=== PATIENT | female | born 1995 | race Caucasian/White ===

== ENCOUNTER 2023-07-22 07:59 | Outpatient (CLI) | payer BC, SELFPAY ==
--- NOTE | 2023-07-22 08:15 | CRLHL7_ITS ---
For Patients: As a result of the Century Cures Act, medical imaging exams and procedure reports are released immediately into your electronic medical record. You may view this report before your referring provider. If you have questions, please contact your health care provider. INDICATION: First trimester scan, establish dates. COMPARISON: None. TECHNIQUE: Real-time ortiz-scale imaging of the pelvis was performed. FINDINGS: Sonographic imaging demonstrates a single living intrauterine gestation. The embryo demonstrates a regular cardiac rate measuring 171 beats per minute. The embryo`s crown-rump length measurement of 2.1 cm corresponds to a gestational age of 8 weeks 5 days with a sonographic due date of 02/26/2024. There is a normal-appearing yolk sac. There are no gross abnormalities noted within the embryo at this early state of development. The gestational sac has a normal appearance. There is a left-sided perigestational hemorrhage measuring 2.3 x 1.9 x 0.8 cm. The amount of fluid within the sac appears appropriate for gestational age. The cervix is closed. The myometrium appears normal. The ovaries are of normal size. Corpus luteal cyst left ovary. There are no suspicious fluid collections noted in the cul-de-sac. IMPRESSION: Single living intrauterine with sonographic gestational age 8 weeks 5 days and sonographic due date of 02/26/2024. Left-sided subchorionic hemorrhage measuring 2.3 x 1.9 x 0.8 cm. Dictated by Herman Covarrubias MD @ 07/22/2023 9:43:48 AM (Electronically Signed)
== END 2023-07-22 08:00 | disposition home or self-care (01) ==
LOC: US 08:02
PROVIDERS: PCP Family Medicine; Visit Provider Registered Nurse
DX: Z34.91 Encounter for supervision of normal pregnancy, unspecified, first trimester (principal); O20.9 Hemorrhage in early pregnancy, unspecified; Z3A.08 8 weeks gestation of pregnancy
CPT/HCPCS: 76801; 86592; 86703; 86762; 86787; 86803; 86850; 86900; 86901; 87086; 87340; 87491; 87591

== ENCOUNTER 2023-07-22 09:13 | Outpatient (CLI) | payer BC, SELFPAY ==
[2023-07-22 14:07] LABS: Chlamydia DNA Amplified* NOT DETECTED (No Detected); GC DNA Amplified* NOT DETECTED (No Detected)
== END 2023-07-22 09:14 | disposition home or self-care (01) ==
PROVIDERS: PCP Family Medicine; Visit Provider Registered Nurse
DX: Z34.91 Encounter for supervision of normal pregnancy, unspecified, first trimester (principal); O20.9 Hemorrhage in early pregnancy, unspecified; Z3A.08 8 weeks gestation of pregnancy
CPT/HCPCS: 86592; 86703; 86762; 86787; 86803; 86850; 86900; 86901; 87086; 87340; 87491; 87591

== ENCOUNTER 2023-10-14 12:48 | Outpatient (CLI) | payer BC, SELFPAY ==
--- NOTE | 2023-10-14 13:00 | CRLHL7_ITS ---
For Patients: As a result of the Century Cures Act, medical imaging exams and procedure reports are released immediately into your electronic medical record. You may view this report before your referring provider. If you have questions, please contact your health care provider. INDICATION: Evaluate anatomy. COMPARISON: 07/22/2023 TECHNIQUE: Real time ortiz scale imaging of the fetus was performed as well as color Doppler analysis of the umbilical vessels. FINDINGS: Sonographic imaging demonstrates a single living intrauterine gestation. Fetus demonstrates a regular cardiac rate of 141 beats per minute. Fetus has a renu breech position. The placenta lies anteriorly without evidence of placenta previa. The placental edge is located 8.7 cm from the internal cervical os. Amniotic fluid volume appears normal. Single deepest vertical pocket: 3.3 cm. The cervix is closed and measures 3.5 cm in length. The composite ultrasound gestational age is calculated at 20 weeks 3 days with an estimated sonographic due date of 02/28/2024. The estimated weight is 384 grams which lies at the 47th %. The following biometric measurements were obtained: Biparietal diameter: 4.7 cm/20 weeks 2 days 28th% Head circumference: 18.0 cm/20 weeks 3 days 22nd% Abdominal circumference: 15.9 cm/21 weeks 0 days 49th% Femur length: 3.5 cm/20 weeks 6 days 43rd% The HC/AC ratio measures: 1.13 range (1.07-1.25) On anatomic survey, there is a normal appearance of the cerebral ventricles, cavum septi pellucidi, cisterna magna and cerebellum. The nose, lips, and facial profile appear normal. The cervical, thoracic and lumbar spine are well visualized and appear normal. There is a normal four-chamber heart view and the left and right ventricular outflow tracts appear normal. The diaphragm and stomach appear normal. The kidneys and bladder also appear normal. There is a normal three-vessel cord and cord insertion site. The four extremities appear normal. IMPRESSION: Normal OB ultrasound exam with concordance of clinical and sonographic dating. No intrinsic abnormalities noted on anatomic survey. Dictated by Herman Covarrubias MD @ 10/14/2023 2:48:45 PM (Electronically Signed)
== END 2023-10-14 12:49 | disposition home or self-care (01) ==
LOC: US 12:49
PROVIDERS: PCP Family Medicine; Visit Provider Advanced Practice Midwife
DX: Z34.92 Encounter for supervision of normal pregnancy, unspecified, second trimester (principal); Z3A.20 20 weeks gestation of pregnancy
CPT/HCPCS: 76805

== ENCOUNTER 2023-12-11 09:30 | Outpatient (CLI) | payer BC, SELFPAY | END 2023-12-11 09:31 | disposition home or self-care (01) | LOC: NFLDREF 12-14 05:57 | PROVIDERS: PCP Family Medicine; Referring Provider Family Medicine; Visit Provider Advanced Practice Midwife | DX: Z34.93 Encounter for supervision of normal pregnancy, unspecified, third trimester (principal); Z3A.29 29 weeks gestation of pregnancy | CPT/HCPCS: 86592 ==

== ENCOUNTER 2024-01-29 10:20 | Outpatient (CLI) | payer BC, SELFPAY | END 2024-01-29 10:21 | disposition home or self-care (01) | LOC: NFLDREF 02-01 05:58 | PROVIDERS: PCP Family Medicine; Referring Provider Family Medicine; Visit Provider Advanced Practice Midwife | DX: Z34.03 Encounter for supervision of normal first pregnancy, third trimester (principal); Z3A.36 36 weeks gestation of pregnancy | CPT/HCPCS: 87081; 87653 ==

== ENCOUNTER 2024-02-19 11:16 | Outpatient (CLI) | payer BC, SELFPAY ==
[2024-02-19] VITALS (13 sets, daily range): BP systolic 123–144; BP diastolic 66–93; PULSE 73–98; RESP 16; TEMP 36.8; O2SAT 98
[2024-02-19 12:02] LABS: Hematocrit 37.7 % (33.0-51.0); Hemoglobin* 12.4 gm/dL (12.0-16.0); Mean Corpuscular HGB Conc 33 gm/dL (32-36); Mean Corpuscular Hemoglobin 30 pg (26-34); Mean Corpuscular Volume 90 fL (80-100); Platelet Count* 237 K/uL (140-440); Red Blood Count 4.18 m/uL (4.00-5.20); White Blood Count* 10.26 K/uL (4.50-11.00)
[2024-02-19 12:16] LABS: Alanine Aminotransferase* 50 U/L (4-35); Aspartate Amino Transferase* 48 U/L (12-35); Blood Urea Nitrogen* 11 mg/dL (5-24); Creatinine* 0.6 mg/dL (0.5-1.5); Estimated Glomerular Filt Rate 125 ml/min
[2024-02-19 12:18] LABS: Slide Review Reflex No
[2024-02-19 13:52] LABS: Total Protein Urine 11 mg/dL
[2024-02-19 13:53] LABS: Creatinine Urine 115.8 mg/dL
--- NOTE | 2024-02-19 15:20 | P.OBLDTN_ITS ---
OB - Triage/Final Diagnosis Visit Information Narrative: Dina is a 28 year old 1 para 0 at 39.1 weeks gestation by LMP, who presents from clinic with elevated blood pressure. She is here for extended blood pressure monitoring. She denies any headache, epigatric pain, blurred vision, or n/v. She denies any other concerns. She endorses good movement. Evaluation Laboratory results: Laboratory Tests 02/19/24 02/19/24 Range/Units 13:18 11:56 WBC 10.26 (4.50-11.00) K/uL RBC 4.18 (4.00-5.20) m/uL Hgb 12.4 (12.0-16.0) gm/dL Hct 37.7 (33.0-51.0) % MCV 90 (80-100) fL MCH 30 (26-34) pg MCHC 33 (32-36) gm/dL Plt Count 237 (140-440) K/uL BUN 11 (5-24) mg/dL Creatinine 0.6 (0.5-1.5) mg/dL Estimated GFR 125 ml/min AST 48 H (12-35) U/L ALT 50 H (4-35) U/L Urine Creatinine 115.8 mg/dL Protein/Creatinin Ratio 0.00 (0-0.19) Urine Total Protein 11 mg/dL Vital signs: Vital Signs - 24 hr 02/19/24 11:33 02/19/24 11:36 02/19/24 11:36 Temperature 98.2 F Pulse Rate 82 Respiratory Rate 16 Blood Pressure 139/91 H Pulse Oximetry 98 02/19/24 11:52 02/19/24 12:07 02/19/24 12:21 Temperature Pulse Rate 73 76 80 Respiratory Rate Blood Pressure 144/93 H 140/87 H 136/86 Pulse Oximetry 02/19/24 12:36 02/19/24 12:52 02/19/24 13:22 Temperature Pulse Rate 86 73 78 Respiratory Rate Blood Pressure 137/91 H 135/90 H 129/77 Pulse Oximetry 02/19/24 13:38 02/19/24 13:51 02/19/24 14:06 Temperature Pulse Rate 86 97 86 Respiratory Rate Blood Pressure 128/77 127/74 130/69 Pulse Oximetry 02/19/24 14:21 02/19/24 14:36 Temperature Pulse Rate 77 90 Respiratory Rate Blood Pressure 123/66 127/73 Pulse Oximetry Fetus (Single) Heart Rate Baseline: 125 Correction Variability: Moderate (6-25) Monitor Accelerations: Absent Monitor Decelerations: None Final Diagnosis (1) Elevated blood pressure reading without diagnosis of hypertension: Status: Acute Problem details: After 4 hours of blood pressure monitoring, BP normalized to 120/70's. Reviewed findings with patient. At this time, does not meet criteria for diagnosis of GH TN Labs WNL with exception of mildly elevated AST and ALT labs. Findings discussed with patient and reviewed concern for potential organ damage with elevated liver enzymes and elevated blood pressures. However, without diagnosis of HTN this is just elevated liver enzymes. Discussed concern for rising ALT/AST, if severe or double normal we would consider this a severe feature of HTN and would recommend magnesium sulfate IV management. Risk of HTN was reviewed with patient earlier in clinic but reviewed risk for mother and baby with HTN in . Discussed IOL today due to elevated labs as recommended by MD, she declines. MD, Dr. Powell, was notified of this. Recommend BP check tomorrow in Center rather than waiting for clinic next week due to blood pressure trends and elevated liver enzymes. Patient agrees with plan. Discussed high likelihood of staying for induction tomorrow for GHTN. She reports understanding. Reviewed warning s/sx of worsening blood pressure disorders of . I reviewed that the course of this is unpredictable meaning it could progress rapidly and they return with symptoms tonight, or progression is slow and they return tomorrow as discussed for BP check. All questions answered. Plan BP check in Labor and Delivery tomorrow, IOL if elevated BP at this time. Will plan to repeat labs if BP elevated. (2) 39 weeks gestation of : Status: Acute (3) Elevated liver enzymes: Status: Acute
--- NOTE | 2024-02-26 17:30 | PC.OBNST ---
NST Note NST Note Start: 02/19/24 11:26 Freq: ONCE Status: Discharge Protocol: Document 02/19/24 15:15 ABP (Rec: 02/26/24 17:20 MMB [id number]) NST Note 1 Para (# of births) 0 EDC 02/25/24 Gestational Age In Weeks & Days 40 Weeks & 1 Days Patient Presented with Complaint(s) of Other Other Complaints Elevated BP in clinic Reactive Yes Appropriate for Gestational Age Yes RN Yony Jones RN Date 02/19/24 Reactive Yes Appropriate for Gestational Age Yes RN Jennifer Quiroga CNM Date 02/19/24 OB NST charge Yes Complete NST Note via Write Note Yes The provider's electronic signature indicates the NST is reactive/appropriate for gestational age. *Note to provider: If an addendum is required, open the patient's chart and click on the note under the Nurse/Allied Health tab.
== END 2024-02-19 15:15 | disposition home or self-care (01) ==
LOC: OB OUT 11:16 → OB 11:17
PROVIDERS: PCP Family Medicine; Visit Provider Advanced Practice Midwife
DX: O26.893 Other specified pregnancy related conditions, third trimester (principal); R03.0 Elevated blood-pressure reading, without diagnosis of hypertension; Z3A.39 39 weeks gestation of pregnancy; R74.8 Abnormal levels of other serum enzymes
CPT/HCPCS: 36415; 59025; 82565; 82570; 84156; 84450; 84460; 84520; 85027; G0463

== ENCOUNTER 2024-02-21 22:06 | Inpatient (IN) | payer BC, SELFPAY ==
[2024-02-21] VITALS (7 sets, daily range): BP systolic 114–141; BP diastolic 68–89; PULSE 57–71; RESP 16; TEMP 36.6; BMI 35.3
[2024-02-21 21:29] LABS: Hematocrit 37.5 % (33.0-51.0); Hemoglobin* 12.4 gm/dL (12.0-16.0); Mean Corpuscular HGB Conc 33 gm/dL (32-36); Mean Corpuscular Hemoglobin 30 pg (26-34); Mean Corpuscular Volume 91 fL (80-100); Platelet Count* 228 K/uL (140-440); Red Blood Count 4.13 m/uL (4.00-5.20); White Blood Count* 11.15 K/uL (4.50-11.00)
[2024-02-21 21:43] LABS: Slide Review Reflex No
[2024-02-21 21:47] LABS: Alanine Aminotransferase* 45 U/L (4-35); Aspartate Amino Transferase* 42 U/L (12-35); Blood Urea Nitrogen* 10 mg/dL (5-24); Creatinine* 0.6 mg/dL (0.5-1.5); Estimated Glomerular Filt Rate 125 ml/min
[2024-02-21 21:48] LABS: Total Protein Urine 18 mg/dL
[2024-02-21 21:49] LABS: Creatinine Urine 55.4 mg/dL
[2024-02-21] MEDS: ACETAMINOPHEN 500 MG TABLET 1000 MG PO (22:06)
--- NOTE | 2024-02-21 22:12 | P.LDBA_ITS ---
Subjective History of Present Illness Time Seen by Provider: 23:15 Date Seen: 02/21/24 Narrative: Dina is being admitted to Labor and Delivery for induction of labor for preeclampsia with severe features. She is a 28 year old at 39.3 weeks gestation. Her full history and physical was dictated by Mable Vidales CNM on 02/05/24. Please see this for details. She was seen in triage on Thursday for elevated blood pressures but did not meet the criteria of GHTN or Preeclampsia at that time. After 4 hours of monitoring her blood pressures normalized and she was sent home, she returned Thursday for a follow up blood pressure check and had normal blood pressure with a reactive NST on that day. Dina complains of a headache that started today around 1500, she also has felt hot and then clammy through out the day. On arrival her blood pressure is elevated, although not in the severe range, she denies any abdominal pain or visual changes. She was given Tylenol for her headache around 2200 and then vomited 25 minutes later, she continues to have a headache. Specific Issues/Plans G 1 Fiancee: Nba H&P done by Mable Vidales CNM on 02/05/24 1. Due to nulliparity and BMI 30.4, recommend daily baby aspirin starting at 12 weeks to reduce risk of preeclampsia 2. Depression. Well managed on Bupropion. Not seeing a counselor. COVID: Not vaccinated. Recommended TDAP: 01/01/2024 RSV: 01/01/2024 OB - Problem Based A/P Additional Plan (1) Severe preeclampsia: Problem details: By headache unresponsive to Tylenol. Status: Acute (2) Elevated liver enzymes: Status: Acute (3) 39 weeks gestation of : Status: Acute Plan Assessment:?? at 39.3 weeks gestation?? Preeclampsia with severe features GBS negative? Patient is coping well with her diagnosis and plan for induction. Labor type: Induced, not in labor? Category 2 FHR pattern.? complicated by: 1. Due to nulliparity and BMI 30.4, recommend daily baby aspirin starting at 12 weeks to reduce risk of preeclampsia 2. Depression. Well managed on Bupropion. Not seeing a counselor. Plan:?? * Admit to L & D? * IV access: SL * Monitoring per policy: continuous ? * Candidate for analgesia of choice. She would like to labor without an epidural for as long as possible. Is open to having one if she feels she needs it. ?Reviewed her pain management options. * Reviewed risks and benefits of IOL with Cook balloon, Pitocin vs Cytotec/Cervidil. Will plan for Cervidil tonight. Pitocin to follow if needed. * Monitor blood pressures per protocol and treat if in severe range per protocol. * Reviewed plan of care and patient status with Dr. Márquez. Based on her continued headache, will initiate magnesium sulfate 4g bolus, 2g per hour with labs every 6 hours. OB and CNM will comanage patient during labor. Dr. Cb Monte will assume care of the preeclampsia with severe features and magnesium, CNM will manage labor. Patient is aware that we will both be a part of her team. Post-delivery, CNM care will be relinquished to MD until discharge. * Patient encouraged to reposition and ambulate to promote physiologic labor and . * Anticipate ? Delivery/Labor/Induction Plan Plan: induction Induction method: Cervidil OB Exam Physical Exam Vital signs: Temp Pulse Resp BP 97.9 F 59 L 16 138/87 02/21/24 20:56 02/21/24 21:41 02/21/24 20:56 02/21/24 21:41 Narrative: Vitals Reviewed Constitutional:? Alert and oriented x3 HEENT:? Normocephalic, atraumatic Neck:? Supple Lungs:? Clear to auscultation bilaterally Heart:? Regular rate and rhythm, no murmur, rub or gallop Abdomen:? Soft, nontender, and gravid. Vertex by Rex's, confirmed with cervical exam. Extremities:? No edema or erythema Cervix: 1 cm/30%/-1 station/vertex NST: 135 bpm/moderate variability/+accelerations/occasional late and variable decelerations/ irregular contractions Detailed Labor and Delivery Exam Patient Gravid: Yes
[2024-02-21] MEDS: ONDANSETRON ODT 4 MG TAB PO (22:34)
[2024-02-21] MEDS: LACTATED RINGERS 1000 ML 1,000 ML 75 ML IV (23:11)
[2024-02-21] MEDS: MAGNESIUM Infusion 40 GM/1,000 ML IV.SOLN IVPB (23:12)
[2024-02-21] MEDS: MAGNESIUM IV 4 GM/100 ML PIGGYBACK IVPB (23:12)
--- NOTE | 2024-02-21 23:33 | PM.OBCN1 ---
OB - CN: HPI Date of Consult Time Seen by Provider: 23:33 Date Seen: 02/21/24 Patient: [facility] Patient Consult date: 02/21/24 Requesting Physician: Dorothy Vidales CNM Primary Care Provider: Hugo Hart MD Consult Narrative Narrative: The patient is a 28 year old G 1 P 0 at 39 weeks 3 days gestation that was admitted to the Center on 02/21/24 for preeclampsia with severe features by EDUCATION DEPARTMENT CHAIR symptoms. BP was elevated in the office on 02/19/2024, she was sent to L&D for serial BP's which were normal and came into the Center on 02/19 for BP check that was also normal. Today, she developed a headache that was unresponsive to Tylenol so came into the center for evaluation. BP's were noted to be 140s/80s with a urine protein/creatinine ratio of 0.3, AST 42 and ALT 45 (which were 48 and 50, respectively on 02/18). Because of the intractable headache the patient was started on magnesium sulfate for seizure prophylaxis and IOL begun. Planning for the labor and delivery to be managed by the CNM's with preeclampsia management by the FRENCH FOLDER's. History of Present Dating criteria: based on LMP care: good care Ultrasounds: normal 1st trimester US and normal mid trimester US complications: preeclampsia History History 1 Elective abortions Para 0 Spontaneous abortions Hx # Term Pregnancies Ectopic pregnancies Hx # Pregnancies Multiple births Number of Living Children 0 Labs Blood type: B (+) positive GBS status: negative OB Labs: Lab Assessment Start: 02/21/24 22:14 Freq: ONCE Status: Active Protocol: PC.OBGBS Activity Type Activity Date Activity User E-sign Co-sign Detail Recorded Client Recorded Date Recorded By Document 02/21/24 22:23 [facility] [id number] 02/21/24 22:23 [facility] 02/21/24 22:23 Lab Assessment GBS Status negative Is Patient Allergic to Penicillin? 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. Engaged to [place] x2 years. What is your current living situation?: I presently have a place to live Problems where you live: no known problems In the past 12 months, utilities in danger of being shut off: no In past 12 months, lack of transportation kept you from medical appts, meetings, work, or getting things needed for daily living: no In the past 12 mos, have been you worried that your food would run out before you had money to buy more?: never true In the past 12 mos, the food you bought just didn't last and you didn't have money to buy more?: never true Smoking Status: Never smoker How often does anyone, including family, friends and others, physically hurt you: never How often does anyone, including family, friends and others, insult or talk down to you: never How often does anyone, including family, friends and others, threaten you with harm: never How often does anyone, including family, friends and others, scream or curse at you: never Little interest or pleasure in doing things: not at all Feeling down, depressed, or hopeless: not at all Meds Home Medications and Allergies Home Medications Medication Instructions Recorded Confirmed Type bupropion HCl 300 mg 24 hr tablet, 300 mg PO DAILY 07/22/23 02/21/24 History extended release docosahexaenoic acid 200 mg 1 mg PO DAILY 07/22/23 02/21/24 History capsule ( DHA) omeprazole 10 mg capsule,delayed 10 mg PO ONCE 12/11/23 02/21/24 History release Allergies Allergy/AdvReac Type Severity Reaction Status Date / Time amoxicillin Allergy Mild Rash Verified 02/19/24 11:38 cefprozil Allergy Mild Rash Verified 02/19/24 11:38 Penicillins Allergy Mild rash Verified 02/19/24 11:38 OB - H&P: Exam Physical Exam: Vital signs: Temp Pulse Resp BP 97.9 F 65 16 129/72 02/21/24 20:56 02/21/24 23:26 02/21/24 20:56 02/21/24 23:26 Narrative: See Dorothy Vidales's examine note. OB - Results Labs Labs: Short CBC 02/21/24 Range/Units 21:22 WBC 11.15 H (4.50-11.00) K/uL Hgb 12.4 (12.0-16.0) gm/dL Hct 37.5 (33.0-51.0) % Plt Count 228 (140-440) K/uL BMP 02/21/24 21:22 BUN 10 Creatinine 0.6 Liver Function 02/21/24 Range/Units 21:22 AST 42 H (12-35) U/L ALT 45 H (4-35) U/L OB - CN: A/P Assessment and Plan (1) Severe preeclampsia: Problem details: By headache unresponsive to Tylenol. Status: Acute Plan 1. Magnesium sulfate for seizure prophylaxis: 4gm load then 2gm/hr IV, continue until 24hours . 2. IOL per Dorothy Vidales CNM 3. GBS negative. 4. Blood type B+
[2024-02-22] VITALS (88 sets, daily range): BP systolic 89–159; BP diastolic 50–90; PULSE 58–130; RESP 12–20; TEMP 36.3–37.2; O2SAT 92–100
--- NOTE | 2024-02-22 01:46 | PM.OBPNL ---
Subjective Date Seen: 02/22/24 Narrative: ?Dina is coping well she is comfortable in bed at this time. She has been regan regularly on her own since admission and feels they are slightly stronger at this time. Cervidil was not placed because of how often she is regan and it was felt she may be starting labor on her own without intervention. Exam now showed slight cervical change from 1-1.5cm. Discussed with Dina that with her diagnosis of Severe Preeclampsia would recommend we add IV Pitocin for augmentation of what is likely spontaneous early labor. Reviewed R/B/A for induction and at this time will plan to start Pitocin to augment, iDna agrees with this plan. Objective Exam: VSS, afebrile General Appearance:? Calm, cooperative. ?No acute distress. ? Psychiatric Exam: Alert and oriented, appropriate affect Abdomen: Gravid Ctx: ?Q 2-4 min apart. ? ? ?Moderate FHTs: ?Baseline: 120. ? ? Variability: moderate. ?Accels: +. ? ?Decels: ?-. SVE: 1.5/30/-1 Membranes: Intact ? Vital Signs: Last Vital Signs Temp 97.9 F 02/21/24 20:56 Pulse 96 02/22/24 01:27 Resp 16 02/21/24 20:56 BP 121/70 02/22/24 01:27 Assessment Assessment: induction ongoing Plan Plan: Assessment:?? at 39.4wks gestation?? GBS neg Patient is coping well with challenges of labor.?? Labor type: Augmented, Early labor? Category 1 FHR pattern.? complicated by: 1. Due to nulliparity and BMI 30.4, recommend daily baby aspirin starting at 12 weeks to reduce risk of preeclampsia 2. Depression. Well managed on Bupropion. Not seeing a counselor. Labor complicated by: Severe Preeclampsia on Magnesium IV? Plan:?? Augment labor with IV Pitocin per protocol. Encourage sleep overnight, may have Vistaril for sleep. Continue with routine intrapartum cares as ordered.?? Patient encouraged to move and change positions to promote physiologic labor and .?? Nonpharmacologic comfort measures per patient preference. Candidate for analgesia of choice if desired. IV Magnesium continues for seizure prevention with severe preeclampsia. OB is managing severe preeclampsia treatment, CNM to manage her labor and transfer of all care to OB provider after delivery. Anticipate progress to NVD. ?
[2024-02-22] MEDS: hydrOXYzine pamoate 25 MG CAPSULE 100 MG PO (02:02)
[2024-02-22] MEDS: OXYTOCIN 30 unit/500 ML in NS 30 UNIT/500 ML BAG IVPB (02:06)
[2024-02-22] MEDS: MORPHINE 10 MG/ML inj IM (05:28)
[2024-02-22 05:29] LABS: Hemoglobin* 12.7 gm/dL (12.0-16.0); Mean Corpuscular HGB Conc 33 gm/dL (32-36); Mean Corpuscular Hemoglobin 30 pg (26-34); Mean Corpuscular Volume 91 fL (80-100); Platelet Count* 247 K/uL (140-440); Red Blood Count 4.29 m/uL (4.00-5.20); White Blood Count* 12.15 K/uL (4.50-11.00)
[2024-02-22 05:37] LABS: Slide Review Reflex No
[2024-02-22 05:42] LABS: Alanine Aminotransferase* 48 U/L (4-35); Aspartate Amino Transferase* 48 U/L (12-35); Blood Urea Nitrogen* 9 mg/dL (5-24); Creatinine* 0.6 mg/dL (0.5-1.5); Est. Creatinine Clearance* 120.54; Estimated Glomerular Filt Rate 125 ml/min
[2024-02-22 05:51] LABS: Magnesium* 5.2 mg/dL (1.5-2.6)
--- NOTE | 2024-02-22 08:34 | P.OBPN_ITS ---
Subjective Date Seen: 02/22/24 Narrative: Dina is a 28 yo at 39 4/7 weeks gestation that presented for elevated blood pressure with a headache. She was admitted and IOL was started for severe pre-e and magnesium sulfate was initiated. She is coping well with labor pain/contractions. She is currently being supported by her Nba tidwell. Understands the current plan of care. Questions answered to her satisfaction. She currently denies a headache, epigastric pain, blurred vision, or n/v. She would like to continue with movement/repositioning, IV pain medication, or nitrous for comfort and pain management.?? Objective Exam: Objective: Constitutional: Alert and oriented x3, mild distress, coping well Vital signs stable, see nurse documentation Abdomen: gravid, contractions palpate mild/moderate with contractions and soft between Cervix: 3 cm/70%/-1 station/vertex NST: 120 bpm/moderate variability/15x15 accelerations/no decelerations/contractions every 2-4 minutes Vital Signs: Last Vital Signs Temp 98.3 F 02/22/24 05:15 Pulse 74 02/22/24 08:15 Resp 16 02/21/24 20:56 BP 118/75 02/22/24 08:15 Pulse Ox 97 02/22/24 05:15 Plan Plan: Assessment:?? at 39.4wks gestation?? GBS neg Patient is coping well with challenges of labor.?? Labor type: Augmented, Early labor? Category 1 FHR pattern.? complicated by: 1. Due to nulliparity and BMI 30.4, recommend daily baby aspirin starting at 12 weeks to reduce risk of preeclampsia 2. Depression. Well managed on Bupropion. Not seeing a counselor. Labor complicated by: Severe Preeclampsia on Magnesium IV? Plan:?? Augment labor with IV Pitocin per protocol. Recommend continued increase of IV p itocin. Continue with routine intrapartum cares as ordered.?? Patient encouraged to move and change positions to promote physiologic labor and .?? Nonpharmacologic comfort measures per patient preference. Candidate for analgesia of choice if desired. IV Magnesium continues for seizure prevention with severe preeclampsia. OB is managing severe preeclampsia treatment, CNM to manage her labor and transfer of all care to OB provider after delivery. Anticipate progress to NVD.
--- NOTE | 2024-02-22 12:00 | P.OBPN_ITS ---
Subjective Date Seen: 02/22/24 Narrative: Dori is a 28 yo at 39 4/7 weeks gestation coping well with labor pa in/contractions. She is currently being supported by her Nba tidwell. Understands the current plan of care. Questions answered to her satisfaction. Reports concerns regarding: none. Objective Exam: Objective: Constitutional: Alert and oriented x3, moderate/severe distress, coping well Vital signs stable, see nurse documentation Abdomen: gravid, contractions palpate moderate with contractions and soft between Cervix: 8 cm/90%/0 station/vertex, AROM with pink tinged fluid NST: 105 bpm/moderate variability/15x15 accelerations/no decelerations/contractions every 2-3 minutes Vital Signs: Last Vital Signs Temp 97.9 F 02/22/24 09:14 Pulse 96 02/22/24 16:03 Resp 16 02/22/24 09:14 BP 119/64 02/22/24 16:03 Pulse Ox 100 02/22/24 15:14 Comments: Patient had a large gush of bleeding with the contraction following AROM. About 100 mL estimated. Continue to monitor bleeding. Plan Plan: Assessment:?? at 39.4wks gestation?? GBS neg Patient is coping well with challenges of labor.?? Labor type: Augmented, Active labor? Category 1 FHR pattern.? complicated by: 1. Due to nulliparity and BMI 30.4, recommend daily baby aspirin starting at 12 weeks to reduce risk of preeclampsia 2. Depression. Well managed on Bupropion. Not seeing a counselor. Labor complicated by: Severe Preeclampsia on Magnesium IV? Suspected Placenta abruption Plan:?? Augment labor with IV Pitocin per protocol. Discussed restarting pitocin due to gush of bleeding following AROM and concern for placenta abruption. Continue with routine intrapartum cares as ordered.?? Patient encouraged to move and change positions to promote physiologic labor and .?? Nonpharmacologic comfort measures per patient preference. Candidate for analgesia of choice if desired. IV Magnesium continues for seizure prevention with severe preeclampsia. OB is managing severe preeclampsia treatment, CNM to manage her labor and transfer of all care to OB provider after delivery. Suspect placental abruption based on gush of blood after AROM and continued trickling of bleeding. Will continue to monitor bleeding. MD notified, Peds notified of suspected placenta abruption. Continue with current labor plan unless status changes. Anticipate progress to NVD.
[2024-02-22] MEDS: LACTATED RINGERS 1000 ML 1,000 ML 75 ML IV (12:22)
[2024-02-22] MEDS: lidocaine HCL 2 % JELLY (TOP) STERILE 6 ML TOPICAL (13:43)
[2024-02-22] MEDS: TRANEXAMIC ACID 100 MG/ML INJ 1000 MG IV (13:43)
[2024-02-22] MEDS: LIDOCAINE 1 % PF 30 ML INJECTION (13:56)
[2024-02-22] MEDS: ACETAMINOPHEN 500 MG TABLET 1000 MG PO ×2 (14:45→21:11)
[2024-02-22 15:10] LABS: Hematocrit 36.7 % (33.0-51.0); Hemoglobin* 12.2 gm/dL (12.0-16.0); Mean Corpuscular HGB Conc 33 gm/dL (32-36); Mean Corpuscular Hemoglobin 30 pg (26-34); Mean Corpuscular Volume 90 fL (80-100); Platelet Count* 237 K/uL (140-440); Red Blood Count 4.06 m/uL (4.00-5.20); White Blood Count* 22.69 K/uL (4.50-11.00)
[2024-02-22 15:22] LABS: Slide Review Reflex No
[2024-02-22 15:25] LABS: Alanine Aminotransferase* 46 U/L (4-35); Aspartate Amino Transferase* 55 U/L (12-35); Blood Urea Nitrogen* 9 mg/dL (5-24); Creatinine* 0.6 mg/dL (0.5-1.5); Est. Creatinine Clearance* 120.54; Estimated Glomerular Filt Rate 125 ml/min
[2024-02-22] MEDS: MORPHINE 4 MG/ML INJ IVP (15:34)
--- NOTE | 2024-02-22 16:05 | W.PM.OBVAGDE ---
OB Procedure Vag Delivery Mother Details Mother Details: The patient is a 28 year-old, 1, now Para 1 admitted on 02/21/24 at 39.3 weeks gestation. : 1 Para: 1 Weeks Gestation: 39.4 Admission Date: 02/21/24 Additional Details Amniotic Membrane Status: AROM Amniotic Membrane Rupture Date: 02/22/24 Amniotic Membrane Rupture Time: 11:13 Amniotic Membrane Fluid Description: Fri[place] and Bloody Analgesia/Anesthesia Type: Local Waterbirth: No Pitcoin: Yes Intrapartal Events: Labor Augmentation Delivery augmentation: rupture of membranes and pitocin Heart: heart tones during second stage were reassuring with return to baseline between contractions and moderate variability. Delivery Details Delivery Date: 02/22/24 Delivery Time: 13:23 Route of delivery: Infant Gender: Female Infant Viability: Alive; Heart Rate Present Position at Delivery: OA Delivery Details: Patient was admitted for early labor and elevated blood pressure with headache where she was diagnosed with Pre-Eclampsia with severe features. Magnesium was initiated. Her labor was augmented and she progressed normally. AROM noted at 1113 with clear pink tinged fluid initially. With the next contraction she had a large gush of bright red blood, approximately 100 mL. She continued to have bright red trickling during contractions with total EBL during labor of 200 mL. Patient was complete at 1254 and pushing at 1255. of a viable female at 1323 in left tilt on a mat on the floor. Vertex delivered OA with compound right hand at chin. Arm and shoulder were delivered easily. No nuchal cord or shoulder. Body delivered easily and without incident. passed to mothers abdomen with a vigorous cry. Cord was clamped and cut at > 5 minutes. APGARS were 7 at one minute and 9 at five minutes respectively. [facility] in attendance of delivery. Mouth was bulb suctioned. Intact placenta with a 3 vessel cord delivered spontaneously at 1340. Fundus firm. Shallow 2nd degree with right labial extension up to the apex of her labia majora was identified and repaired in typical fashion. QBL 400 cc. Total of 600 for labor and . The laceration continued to trickle, even after repair. Recommended ice application and Dr. Aldridge notified. Mother and baby stable; mother plans to breastfeed. Infant weight pending. At about an hour after repair was completed, she attempted to get up and void and had a large gush of bleeding. Dr. Aldridge was nearby and pulled to bedside. She recommended exam under anesthesia due further assess bleeding. See her note for further details. 1 Minute Interval Total Score: 7 5 Minute Interval Total Score: 9 Additional Details Shoulder Dystocia: No Placenta Delivery Time: 13:40 Placental Delivery Description: Spontaneous Delivery repair: Vicryl Procedure Done: Global Blood Loss: 600 Laceration: Perineal - 2nd Degree Blood Loss Measurement Type: QBL (with EBL during labor) Bakri Used: No Sponge/Need Count Correct: Yes Cord Vessel Description: 3 Vessels Event Summary Status: Mother and infant were stable after delivery. Patient to continue on magnesium sulfate for 24 hours post delivery. Care assumed by MD team, report given to Dr. Aldridge. Disposition: floor
--- NOTE | 2024-02-22 17:15 | SUR.OPER ---
Raytec removed from vagina along with large clots, QBL is 76 grams
[2024-02-22] MEDS: ESTROGENS, CONJUGATED VAGINAL 0.625 MG/G CREAM 1 APPLIC VAGINAL (17:30)
--- NOTE | 2024-02-22 17:42 | W.ANESCHARGE ---
Anesthesia Charges Start Date/Time Anesthesia Start Date: 02/22/24 Anesthesia Start Time: 16:21 Stop Date/Time Anesthesia Stop Date: 02/22/24 Anesthesia Stop Time: 17:42 Summary Emergency: [employer]ER
[2024-02-22] MEDS: MAGNESIUM Infusion 40 GM/1,000 ML IV.SOLN IVPB (20:07)
[2024-02-22 21:01] LABS: Hematocrit 31.5 % (33.0-51.0); Hemoglobin* 10.5 gm/dL (12.0-16.0); Mean Corpuscular HGB Conc 33 gm/dL (32-36); Mean Corpuscular Hemoglobin 30 pg (26-34); Mean Corpuscular Volume 90 fL (80-100); Platelet Count* 237 K/uL (140-440); Red Blood Count 3.49 m/uL (4.00-5.20); White Blood Count* 24.58 K/uL (4.50-11.00)
[2024-02-22 21:02] LABS: Slide Review Reflex No
[2024-02-22 21:17] LABS: Aspartate Amino Transferase* 61 U/L (12-35); Blood Urea Nitrogen* 9 mg/dL (5-24); Creatinine* 0.7 mg/dL (0.5-1.5); Est. Creatinine Clearance* 103.32; Estimated Glomerular Filt Rate 121 ml/min
[2024-02-22 22:10] LABS: Alanine Aminotransferase* 56 U/L (4-35)
--- NOTE | 2024-02-23 00:23 | W.PM.GYNPROC ---
Procedure Note Time Seen by Provider: 15:30 Date of procedure: 02/23/24 Will [facility] bill your pro fee for this procedure?: Yes Procedure Description: EXAM UNDER ANESTHESIA AND VAGINAL LACERATION REPAIR I was asked to assess Dina who recently had and at 1323 due to continued vaginal bleeding. Her peripartum course is complicated by preeclampsia with severe features, currently on magnesium sulfate. She delivered without an epidural and received lidocaine for laceration repair. Her fundus is firm with minimal blood expressed during fundal check but there is bright red bleeding coming from her vagina. I was unable to assess her adequately at bedside due to pain despite giving her 4 mg of morphine. I recommended an exam under spinal anesthesia to do more thorough assessment and elucidated the source of bleeding. 1 small lap placed into the vaginal for tamponade until she goes back to the OR. EBL for delivery and prior to my assessment was 600 mL. PREOPERATIVE DIAGNOSIS: 1. Continued vaginal bleeding after delivery POSTOPERATIVE DIAGNOSIS: 1. Retained amniotic membranes 2. Deep left sulcal laceration extending close to the cervix 3. Deep right sulcal laceration extending care home up the vaginal vault 4. Perineal hematoma at the site of the second-degree repair PROCEDURE: 1. EUA 2. Removal of retained amniotic membranes 3. Vaginal lacerations repair 4. Evacuation of perineal hematoma SURGEON: Mercedes Aldridge MD ANESTHESIA: Spinal FINDINGS: 1. Uterus 2 cm below umbilicus. Mobile/midline/firm. Minimal bleeding from uterus with fundal massage. No adnexal masses on EUA 2. Retained amniotic membranes 3. Deep left sulcal laceration extending close to the cervix 4. Deep right sulcal laceration extending care home up the vaginal vault 5. Perineal hematoma at the site of the second-degree repair FLUIDS: 500cc QUANTITATIVE BLOOD LOSS: 162 cc URINE OUTPUT: 1100 cc COMPLICATIONS: None SPECIMEN: 1. Retained amniotic membranes INDICATIONS: Dina is a 28 yo , with continue vaginal bleeding after spontaneous vaginal delivery. DESCRIPTION OF PROCEDURE: The patient was taken to the operating room where spinal anesthesia was administered. The lap inside the vagina was removed and accounted for. She was prepared and draped in normal sterile fashion in the dorsal lithotomy position in yellow fin/candy cane stirrups, taking care to avoid lower extremity hyperextension, hyperflexion or compression. A surgical time-out was performed with the entire operative staff per protocol. Menon catheter was placed. EUA revealed the above findings. Retaining amniotic membrane was noted while I was examining the cervix for any laceration circumferentially. Ring forcep was used to grasp amniotic membrane and removed it from the uterus. No bleeding expressed from the uterus. Attention was then turned for the laceration repairs. The previous second-degree perineal sutures were cut as she was having an expanding hematoma at her perineum. Clots were expressed after the sutures were cut. Deep left sulcal laceration extending close to the cervix was repaired with a 2-0 Vicryl in a continuous locking manner. Deep right sulcal laceration extending care home up the vaginal vault was also repaired with 2-0 Vicryl in a continuous locking manner. Another 2-0 vicryl was used to place deep interrupted suture to rebuild perineal body and close the space of the evacuated hematoma. After that, 2-0 Vicryl was used to repair the second-degree laceration in a continuous locking manner. Three additional [id number] were placed for hemostasis at various areas in the vaginal vault. Rectal exam was normal with no sutures palpated. Vaginal packing with Premarin was placed. This is to be removed tomorrow morning by rounding provider. The ultrasound the uterus and her endometrial stripe is less than 2 cm in transverse and sagittal views. All instruments were removed. Debrief performed per protocol and specimen reviewed. Specimen was sent to pathology. The patient tolerated the procedure well. Sponge, lap and needle counts were correct x 2. The patient was taken to the recovery room in stable condition.
[2024-02-23 01:06] VITALS: BP 114/69
[2024-02-23] MEDS: IBUPROFEN 600 MG TABLET PO ×3 (01:08→17:20)
[2024-02-23] MEDS: LACTATED RINGERS 1000 ML 1,000 ML 75 ML IV (01:22)
[2024-02-23 03:09] LABS: Hematocrit 27.8 % (33.0-51.0); Hemoglobin* 9.4 gm/dL (12.0-16.0); Mean Corpuscular HGB Conc 34 gm/dL (32-36); Mean Corpuscular Hemoglobin 31 pg (26-34); Mean Corpuscular Volume 91 fL (80-100); Platelet Count* 237 K/uL (140-440); Red Blood Count 3.05 m/uL (4.00-5.20); White Blood Count* 23.36 K/uL (4.50-11.00)
[2024-02-23 03:11] LABS: Slide Review Reflex No
[2024-02-23 03:16] VITALS: BP 107/68; PULSE 84; RESP 16; TEMP 36.9; O2SAT 96
[2024-02-23 03:23] LABS: Creatinine* 0.8 mg/dL (0.5-1.5); Est. Creatinine Clearance* 90.41; Estimated Glomerular Filt Rate 103 ml/min
[2024-02-23 03:24] LABS: Alanine Aminotransferase* 43 U/L (4-35); Aspartate Amino Transferase* 49 U/L (12-35); Blood Urea Nitrogen* 11 mg/dL (5-24)
[2024-02-23 06:15] VITALS: BP 118/78
[2024-02-23] MEDS: ACETAMINOPHEN 500 MG TABLET 1000 MG PO ×3 (06:17→21:39)
--- NOTE | 2024-02-23 08:38 | PM.OBPNVD1 ---
OB - PN:Subj Subjective Date Seen: 02/23/24 Interval history: Dina is a 28-year-old G1 now P 1-0-0-1 woman who is status post normal spontaneous vaginal delivery on 02/22/2024 at 39 weeks,, 3 days gestation. This was in the setting of preeclampsia with severe features. She was maintained on magnesium sulfate throughout her labor course. She gave to a male at 1:23 p.m.. She had a second-degree perineal laceration and bilateral deep sulcal lacerations, requiring repair in the operating room. She did have some retained membranes at time of exam under anesthesia in the operating room. She also had a hematoma developing in the second-degree perineal laceration that had initially been repaired, requiring evacuation and reapproximation. Ob problem list: 1. Due to nulliparity and BMI 30.4, recommend daily baby aspirin starting at 12 weeks to reduce risk of preeclampsia 2. Depression. Well managed on Bupropion. Not seeing a counselor. She is actually feeling pretty well this morning. She has not been ambulating, as catheter has been in place until just recently and vaginal packing has been in place. She does not complain of pain, but she does not know what it will feel like when she is ambulating regularly. She denies headache, shortness of breath, chest pain, and visual changes. Her daughter is doing well. She is progressing well with . OB - PN: Obj Exam Physical Exam: Vital signs: Temp Pulse Resp BP Pulse Ox O2 Del Method 98.5 F 84 16 118/78 96 Room Air 02/23/24 03:16 02/23/24 03:16 02/23/24 03:16 02/23/24 06:15 02/23/24 03:16 02/22/24 23:04 She is normotensive in recent history. She is overall fluid negative. Urine output 04/07/2025 in the last 24 hours, and 550 mL in the last 8 hours. Narrative: General: Pleasant, no acute distress Heart: Regular rate and rhythm, no murmur or gallop Lungs: Clear to auscultation bilaterally Abdomen: Soft, nontender, fundus well below umbilicus, no right upper quadrant pain, normoactive bowel sounds Lower extremities: No edema or erythema Perineum: Vaginal packing removed, which is about 70% saturated. Perineum is intact and does not appear swollen but is bruised. Vaginal introitus is normal. Urinary Catheter Management: Menon: Cath placed during this visit: yes, but has since been removed by the nurse Reason for continuing: decision to DC catheter Insertion date: 02/22/24 Insertion time: 16:40 Removal date: 02/23/24 Removal time: 06:30 OB - PN: Obj Data Labs Labs: Laboratory Results - last 24 hr 02/22/24 02/22/24 02/23/24 14:50 20:56 03:05 WBC 22.69 H 24.58 H 23.36 H RBC 4.06 3.49 L 3.05 L Hgb 12.2 10.5 L 9.4 L Hct 36.7 31.5 L 27.8 L MCV 90 90 91 MCH 30 30 31 MCHC 33 33 34 Plt Count 237 237 237 BUN 9 9 11 Creatinine 0.6 0.7 0.8 Estimated Creat Clear 120.54 103.32 90.41 Estimated GFR 125 121 103 AST 55 H 61 H 49 H ALT 46 H 56 H 43 H OB - PN: A/P Delivery Assessment and Plan (1) Severe preeclampsia: Problem details: By headache unresponsive to Tylenol. Status: Acute Assessment and Plan: Normotensive since the of her , maintained on magnesium sulfate. Massive diuresis has occurred. We will plan to discontinue magnesium sulfate infusion at 1:23 p.m.. One more set of HELLP labs as described below. (2) Elevated liver enzymes: Status: Acute Assessment and Plan: Trending downward as of last check. She will have 1 more series of HELLP labs prior to discontinuation of magnesium sulfate. (3) Anemia associated with acute blood loss: Status: Acute Assessment and Plan: Related to blood loss from vaginal sulcal lacerations, now repaired. Hemoglobin 9.5. Normal vital signs. Begin ferrous sulfate for treatment of iron deficiency anemia. (4) Vaginal laceration: Status: Acute Assessment and Plan: Bilateral vaginal sulcal lacerations and second-degree perineal laceration, which required evacuation of hematoma and reapproximation yesterday. Currently West appropriate course. Plan day: 1
[2024-02-23 09:12] VITALS: BP 116/81; PULSE 89; RESP 16; TEMP 36.6; O2SAT 99
[2024-02-23 09:18] LABS: Hematocrit 28.8 % (33.0-51.0); Hemoglobin* 9.4 gm/dL (12.0-16.0); Mean Corpuscular HGB Conc 33 gm/dL (32-36); Mean Corpuscular Hemoglobin 30 pg (26-34); Mean Corpuscular Volume 92 fL (80-100); Platelet Count* 249 K/uL (140-440); Red Blood Count 3.12 m/uL (4.00-5.20); White Blood Count* 22.94 K/uL (4.50-11.00)
[2024-02-23 09:19] LABS: Slide Review Reflex No
[2024-02-23] MEDS: DOCUSATE SODIUM 100 MG CAPSULE PO (09:28)
[2024-02-23 09:36] LABS: Aspartate Amino Transferase* 51 U/L (12-35); Creatinine* 0.8 mg/dL (0.5-1.5); Est. Creatinine Clearance* 90.41; Estimated Glomerular Filt Rate 103 ml/min
[2024-02-23 09:37] LABS: Alanine Aminotransferase* 44 U/L (4-35); Blood Urea Nitrogen* 10 mg/dL (5-24)
[2024-02-23] MEDS: FERROUS SULFATE 325 MG TABLET 650 MG PO (11:42)
[2024-02-23 14:29] VITALS: BP 110/73; PULSE 95; RESP 16; TEMP 37.2; O2SAT 96
[2024-02-23 16:52] LABS: Rapid Plasma Reagin (RPR) Non Reactive (Non Reactive)
[2024-02-23 21:45] VITALS: BP 116/67; PULSE 87; RESP 16; TEMP 36.8; O2SAT 97
[2024-02-24] MEDS: IBUPROFEN 600 MG TABLET PO ×2 (02:02→08:38)
[2024-02-24 02:31] VITALS: BP 100/69; PULSE 66; RESP 16; TEMP 36.8; O2SAT 97
[2024-02-24 05:41] VITALS: BP 112/73
[2024-02-24] MEDS: ACETAMINOPHEN 500 MG TABLET 1000 MG PO ×2 (07:38→15:07)
[2024-02-24 08:20] VITALS: BP 116/75; PULSE 77; RESP 16; TEMP 36.9; O2SAT 98
--- NOTE | 2024-02-24 10:17 | PM.OBDSVD1 ---
DS: Providers Provider Date Seen: 02/24/24 Date of admission: 02/21/24 22:06 Primary care physician: Hugo Hart MD Admitting Clinician: Dorothy Vidales CNM Consults: 02/21/24 23:00 Consult to Physician [CONS] Routine Comment: Consulting Provider: Dori Márquez Has provider been notified: Yes Attending Physician on discharge: Teo Beltran MD Date of Discharge: 02/24/24 DS: Diagnosis Discharge Diagnosis (1) Anemia associated with acute blood loss: Status: Resolved (2) Severe preeclampsia: Status: Resolved (3) Elevated liver enzymes: Status: Resolved Exam Narrative: Exam Narrative: VITAL SIGNS: As noted above. GENERAL APPEARANCE: Alert, cooperative female in no acute distress. MOOD & AFFECT: Normal. HEART: Regular rate and rhythm without murmurs. LUNGS: Lungs are clear to auscultation bilaterally. No crackles, wheezes, or rhonchi. ABDOMEN: Soft, non-distended and nontender. Well contracted uterus. : Minimal spotting. EXTREMITIES: Nonedematous. Well perfused. Nontender. NEURO: Intact. Const: Vital Signs, click to edit/add: Vital Signs - 24 hr 02/23/24 14:29 02/23/24 21:45 02/24/24 02:31 Temperature 99.0 F 98.2 F 98.2 F Pulse Rate [Pulse Oximeter] 95 87 66 Respiratory Rate 16 16 16 Blood Pressure [Ri ght Arm] 110/73 116/67 100/69 Pulse Oximetry 96 97 97 Oxygen Delivery Me thod Room Air Room Air Room Air 02/24/24 05:41 02/24/24 08:20 Temperature 98.4 F Pulse Rate [Pulse Oximeter] 77 Respiratory Rate 16 Blood Pressure [Ri ght Arm] 112/73 116/75 Pulse Oximetry 98 Oxygen Delivery Me thod Room Air OB - DS: Summary Hospital Course Hospital Course: The patient is a 28 year old G 1 P 1 at 39 4/7 weeks gestation that was admitted to the Center on 02/21/24 for induction of labor due to new diagnosis of preeclampsia with severe features. She had an uncomplicated vaginal delivery. She delivered a viable female . Patient received magnesium sulfate throughout laboring process and 24 hours . Patient had episode of PPH after delivery that required exam under anesthesia. Deep bilateral vaginal sulcal lacerations repaired, removal of amniotic membrane and evacuation of hematoma completed. She is breast feeding. the patient has done well. her blood pressures have been normal, she has not required oral antihypertensive therapy. 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 Her hemoglobin has remained stable at around 9.4 mg/dL. Oral iron has been started. She is tolerating ambulation without lightheadedness or dizziness. She has completed observation for 24 hours after magnesium completion and is ready to be discharged home today. Peripartum Data delivery method: Vaginal Laceration description: Vaginal - 2nd Degree Procedures: Procedures Operation Date: 02/22/24 16:10 Actual Procedure Side Surgeon p Vaginal Laceration Repair Mercedes Aldridge MD complications: hematoma (Complicated vaginal lacerations- repaired at OR ) and other (Preeclampsia with severe features) Infant Gender: Female Infant Discharge Plan: Home Status at Discharge Functional status at discharge: independent ambulation Overall status at discharge: patient is progressing back to baseline Time Spent with Patient Time attestation: Total time spent providing and/or coordinating discharge services: Time spent: Less than 30 minutes Discharge Plan Discharge Disposition: Home, Self-Care Date of Admission: 02/21/24 22:06 Attending Provider on Discharge: Nadira Beltran Consulting Providers: Dori Márquez; Nadira Beltran; Zeina Yuan; Mercedes Aldridge; Maria C Quiroga Primary Care Provider: Hugo Hart Condition: Stable Anticipated Discharge Date/Time: 02/24/24 15:00 Discharge Medications: New ferrous sulfate 325 mg (65 mg iron) Tablet 650 mg PO Q48H Qty: 30 0RF ibuprofen 600 mg Tablet 600 mg PO Q6H PRNQty: 30 0RF Continued bupropion HCl 300 mg tablet extended release 24 hr 300 mg PO DAILY DHA 200 mg capsule 1 mg PO DAILY No Action acetaminophen [Tylenol Extra Strength] 500 mg tablet 500 mg PO Q6H PRN Slynd 4 mg (28) tablet 1 tab PO QDAY Qty: 84 3RF Discharge Orders: Discharge Order (Routine); Ordered 02/24/24 Ordered By: Nadira Beltran Patient Education: Preeclampsia and Eclampsia After Delivery (GEN), OB Vaginal/Breast Feeding Additional Instructions: Measure blood pressures at home twice a day. Notify clinic if there are blood pressures persistently more than 140 systolics, 90s diastolics or if any of the following symptoms: headaches that do not go away with pain medication, visual changes such as dark spots in vision, pain in the upper abdomen-that moves towards the upper right side. Follow-up in clinic in 3-5 days after discharge for blood pressure check. Follow-up in clinic in 2 weeks for and mood follow-up. Follow-up in 6 weeks in clinic for regular visit. Activity Level: Activity as Tolerated and Other Activity Detail: Nothing vaginally for 6 weeks Discharge Diet: Regular Follow Up Appointments: Hugo Hart MD [Primary Care Provider] - Forms: [facility] medical Info Instructions
[2024-02-24 11:06] LABS: Alanine Aminotransferase* 39 U/L (4-35); Aspartate Amino Transferase* 43 U/L (12-35)
[2024-02-24 12:20] VITALS: BP 133/81; PULSE 74; RESP 16; TEMP 36.7; O2SAT 97
== END 2024-02-24 16:30 | disposition home or self-care (01) | DRG 541 ==
LOC: OB OUT 22:06 → OB 22:06
PROVIDERS: Advanced Practice Midwife; Obstetrics & Gynecology; Admitting Provider Advanced Practice Midwife; PCP Family Medicine; Visit Provider Advanced Practice Midwife
PROC: 0UQG0ZZ Repair Vagina, Open Approach (ICD-10-PCS; principal; 2024-02-22 16:00)
DX: O14.14 Severe pre-eclampsia complicating childbirth (principal); Z3A.39 39 weeks gestation of pregnancy; O71.4 Obstetric high vaginal laceration alone; O99.344 Other mental disorders complicating childbirth; F32.A Depression, unspecified; Z37.0 Single live birth; O71.7 Obstetric hematoma of pelvis; O72.2 Delayed and secondary postpartum hemorrhage; O90.81 Anemia of the puerperium; D62 Acute posthemorrhagic anemia
CPT/HCPCS: 00942; 36415; 59025; 82565; 82570; 83735; 84156; 84450; 84460; 84520; 85027; 86592; 88305; 88307; 99140; G0463; A9270; J1100; J1885; J2001; J2270; J2371; J2405; J3475; J7120

== ENCOUNTER 2025-02-03 14:56 | Outpatient (CLI) | payer BC, SELFPAY ==
[2025-02-05 15:00] LABS: HPV Source Cervix; HPV, High Risk by TMA Not Detected
== END 2025-02-03 14:57 | disposition home or self-care (01) ==
PROVIDERS: PCP Family Medicine; Visit Provider Advanced Practice Midwife
DX: Z12.4 Encounter for screening for malignant neoplasm of cervix (principal); Z11.51 Encounter for screening for human papillomavirus (HPV)
CPT/HCPCS: 87624; 87625; 88141; 88142